=== PATIENT | female | born 1985 | race Caucasian/White ===

== ENCOUNTER 2017-07-09 12:12 | Emergency (ER) | payer OTHER ==
--- NOTE | 2017-07-09 14:20 | UC ---
Respiratory Complaint HPI - HPI Summary HPI Summary: 31 y/o female presents to the urgent care c/o dry cough, sore throat and nasal congestion with sinus pain for the past 3 weeks. Pt reports her children had similar symptoms which resolves last week. However hers still, now naasal congestion is worse with green discharge, sinus pain and cough is worse at night time. She is LMP: 04/2017, She can't recall exactly the date. Pt states her HR is usually elevated above 100. Pt denies fever, SOB, chest pain, dizziness, abdominal pain, N/V/D. She still hasn't have the flu vaccines. - History of Current Complaint Chief Complaint: UCRespiratory Stated Complaint: CONGESTED, SORE THROAT Time Seen by Provider: 07/09/17 14:18 Hx Obtained From: Patient Hx Last Menstrual Period: 03/2017 Onset/Duration: Gradual Onset, Lasting Weeks - 3 weeks, Still Present, Worse Since - last week Severity Initially: Mild Severity Currently: Moderate Pain Intensity: 5 Pain Scale Used: 0-10 Numeric Character: Cough: Nonproductive Aggravating Factors: Deep Breaths Alleviating Factors: Nothing Associated Signs And Symptoms: Positive: Chills, Nasal Congestion, Sinus Discomfort. Negative: Calf Pain, Calf Swelling - Risk Factors Pulmonary Embolism Risk Factors: Negative Cardiac Risk Factors: Negative Pseudomonas Risk Factors: Negative Tuberculosis Risk Factors: Negative - Allergies/Home Medications Allergies/Adverse Reactions: Allergies Allergy/AdvReac Type Severity Reaction Status Date / Time Sulfa Drugs Allergy Severe Unknown Verified 07/09/17 12:39 Reaction Details aspirin/ibuprofen AdvReac See Comment Uncoded 07/09/17 12:39 PMH/Surg Hx/FS Hx/Imm Hx Previously Healthy: Yes Other GI/ History: Ulcerative colitisw, crohns - Surgical History Surgical History: None - Family History Known Family History: Positive: Hypertension, Diabetes Family History: crohns disease - Social History Occupation: Unemployed Lives: With Family Alcohol Use: None Substance Use Type: None Smoking Status (MU): Never Smoked Tobacco - Immunization History Most Recent Influenza Vaccination: 05/09/16 Most Recent Tetanus Shot: 2010 Most Recent Pneumonia Vaccination: unsure Review of Systems Constitutional: Negative Skin: Negative Eyes: Negative ENT: Sore Throat, Nasal Discharge, Sinus Congestion, Sinus Pain/Tenderness Respiratory: Cough - dry Cardiovascular: Negative Gastrointestinal: Negative Genitourinary: Negative Motor: Negative Neurovascular: Negative Musculoskeletal: Negative Neurological: Negative Psychological: Negative Is Patient Immunocompromised?: No All Other Systems Reviewed And Are Negative: Yes Physical Exam Triage Information Reviewed: Yes Vital Signs: Initial Vital Signs Temp 98.6 F 07/09/17 12:36 Pulse 110 07/09/17 12:36 Resp 18 07/09/17 12:36 BP 123/68 07/09/17 12:36 Pulse Ox 100 07/09/17 12:36 - Additional Comments Vitals: reviewed General: Well developed, well-nourished female patient with NAD. Head and face: Normocephalic and atraumatic, Positive tenderness over the frontal and maxillary sinuses.. Eyes: PERRLA, EOMI x 2. Normal conjunctiva. No eye discharge. ENT: Ears and TM with normal limits. Nose: with yellowish discharge and erythematous mucosa. Pharynx with erythema, no exudate. Neck: Supple, no JVD, no carotid bruits and no lymphadenopathy. Lungs: clear, no rales, no rhonchi, no wheezes. CVS: RRR, S1 and S2 present no murmurs or gallops appreciated. Abdomen: soft nontender with positive bowel sounds. Extremities: no edema noted. Neuro: WNL. Skin: warm and dry UC Diagnostic Evaluation - Laboratory O2 Sat by Pulse Oximetry: 100 Respiratory Course/Dx - Differential Dx/Diagnosis Differential Diagnosis/HQI/PQRI: Asthma, Bronchitis, Influenza, Laryngitis, Lower Resp Infection, Sinusitis Provider Diagnoses: 1- acute bacterial sinustis. 2- Cough Discharge - Discharge Plan Condition: Stable Disposition: HOME Prescriptions: Albuterol HFA INHALER* [Ventolin HFA Inhaler*] 1 puff INH Q6H PRN #1 mdi PRN Reason: Cough Amoxicillin PO (*) [Amoxicillin 875 MG (*)] 875 mg PO BID #14 tab Patient Education Materials: Sinusitis (ED) Referrals: Chelo Adrian MD [Primary Care Provider] - 3 Days Additional Instructions: 1- Please increase fluid intake and rest. start taking the antibiotic if symptoms are worsening 2-Use saline drops or saline spray as directed to clear sinuses 3-Please f/u with your OBGYN for further management
[2017-07-09 15:01] VITALS: BP 131/85
== END 2017-07-09 15:06 | disposition home or self-care (01) ==
LOC: UCEAST 12:12
DX: J01.90 Acute sinusitis, unspecified (principal); B96.89 Other specified bacterial agents as the cause of diseases classified elsewhere; R05 Cough; Z88.2 Allergy status to sulfonamides
CPT/HCPCS: 87502; 87651; 99212; G0463

== ENCOUNTER 2018-01-07 16:45 | Emergency (ER) | payer OTHER ==
--- NOTE | 2018-01-07 16:54 | UC ---
Throat Pain/Nasal Jamal HPI - HPI Summary HPI Summary: 32 yo female presents with sinus pain/pressure/congestion for the last week. She feels her symptoms are worsening. Has not taken anything OTC because she is breast feeding and currently 9 months . She is also asking for a refill of Zofran ODT that was rx'd by her OBGYN a few months ago - she has used this sparingly and has run out in the last week, but would like more. She tried calling her OBGYN for this, but they did not get back to her today and have since closed for the day. Denies fever, chills, sore throat, cough, SOB, chest pain, abdominal pain, vomiting, vaginal bleeding. - History of Current Complaint Stated Complaint: SINUS COMPLAINT Time Seen by Provider: 01/07/18 16:53 Hx Obtained From: Patient Hx Last Menstrual Period: 03/2017 Onset/Duration: Gradual Onset Severity: Moderate Pain Intensity: 6 Pain Scale Used: 0-10 Numeric - Allergies/Home Medications Allergies/Adverse Reactions: Allergies Allergy/AdvReac Type Severity Reaction Status Date / Time Sulfa (Sulfonamide Allergy See Comment Verified 01/07/18 16:55 Antibiotics) aspirin/ibuprofen AdvReac See Comment Uncoded 07/09/17 12:39 PMH/Surg Hx/FS Hx/Imm Hx - Additional Past Medical History Additional PMH: None Previously Healthy: Yes - Surgical History Surgical History: None - Family History Known Family History: Positive: Hypertension, Diabetes Family History: crohns disease - Social History Occupation: Employed Full-time Lives: With Family Alcohol Use: None Substance Use Type: None Smoking Status (MU): Never Smoked Tobacco - Immunization History Most Recent Influenza Vaccination: 05/09/16 Most Recent Tetanus Shot: 2010 Most Recent Pneumonia Vaccination: unsure Review of Systems Constitutional: Negative Skin: Negative Eyes: Negative ENT: Nasal Discharge, Sinus Congestion, Sinus Pain/Tenderness Respiratory: Negative Cardiovascular: Negative Gastrointestinal: Nausea Genitourinary: Negative Neurovascular: Negative Neurological: Negative Psychological: Negative All Other Systems Reviewed And Are Negative: Yes Physical Exam - Summary Physical Exam Summary: GENERAL: NAD. WDWN. No pain distress. SKIN: No rashes, sores, lesions, or open wounds. HEENT: Head: AT/NC Eyes: EOM intact. Conjunctiva clear without inflammation or discharge. Ears: Hearing grossly normal. TMs intact, no bulging, erythema, or edema. Nose: Nasal mucosa moderately swollen and erythematous with yellow thick discharge. TTP maxillary and frontal sinus. Throat: Posterior oropharynx without exudates, erythema, or tonsillar enlargement. Uvula midline. NECK: Supple. Nontender. No lymphadenopathy. CHEST: CTAB. No r/r/w. No accessory muscle use. Breathing comfortably and in no distress. CV: RRR. Without m/r/g. Pulses intact. Brisk cap refill. NEURO: Alert. CN II-XII grossly intact. PSYCH: Age appropriate behavior. Triage Information Reviewed: Yes Vital Signs: Vital Signs: Temp Pulse Resp BP Pulse Ox 98.4 F 102 18 119/75 96 01/07/18 16:54 01/07/18 16:54 01/07/18 16:54 01/07/18 16:54 01/07/18 16:54 Throat Pain/Nasal Course/Dx - Course Course Of Treatment: Sinusitis. Regarding her zofran - verified with Karey that she was on Zofran 4mg ODT q6hrs. Will rx a short supply for her and have her f/u with her OBGYN. - Differential Dx/Diagnosis Provider Diagnoses: Sinusitis Discharge - Sign-Out/Discharge Documenting (check all that apply): Discharge/Admit/Transfer - Discharge Plan Condition: Stable Disposition: HOME Prescriptions: Amoxicillin PO (*) [Amoxicillin 500 MG CAP*] 500 mg PO BID #20 cap Ondansetron ODT TAB* [Zofran 4 MG Odt TAB*] 4 mg PO Q8H PRN #12 tab.odt MDD 3 PRN Reason: Nausea Patient Education Materials: Sinusitis (ED) Referrals: Chelo Adrian MD [Primary Care Provider] - Additional Instructions: If you develop a fever, shortness of breath, chest pain, new or worsening symptoms - please call your PCP or go to the ED. - Billing Disposition and Condition Condition: STABLE Disposition: Home
[2018-01-07 17:01] VITALS: BP 119/75
== END 2018-01-07 17:25 | disposition home or self-care (01) ==
LOC: UCEAST 16:45
DX: O26.893 Other specified pregnancy related conditions, third trimester (principal); Z3A.00 Weeks of gestation of pregnancy not specified; J32.9 Chronic sinusitis, unspecified; Z88.2 Allergy status to sulfonamides; Z88.6 Allergy status to analgesic agent
CPT/HCPCS: 99202; G0463

== ENCOUNTER 2018-02-03 00:11 | Emergency (ER) | payer OTHER ==
[2018-02-03 00:32] VITALS: BP 111/70
[2018-02-03] MEDS ORDERED: NS 0.9% 1000 ML* 1,000 ML IV ONE (00:41)
[2018-02-03 01:01] LABS: ABS Basophils 0 10^3/ul (0-0.2); ABS Eosinophils 0.2 10^3/ul (0-0.6); ABS Lymphocytes 1.5 10^3/ul (1.0-4.8); ABS Monocytes 0.6 10^3/ul (0-0.8); ABS Neutrophils 6.7 10^3/ul (1.5-7.7); ABS Nucleated RBC 0 10^3/ul; Hematocrit 34 % (35-47); Hemoglobin 11.2 g/dl (12.0-16.0); Lymphocyte % 17.1 % (25-47); Mean Corpuscular HGB Conc 33 g/dl (31-36); Mean Corpuscular Hemoglobin 26 pg (27-31); Mean Corpuscular Volume 80 fL (80-97); Mean Platelet Volume 8.4 um3 (7.4-10.4); Nucleated Red Blood Cells % 0.2; Platelet Count 193 10^3/ul (150-450); Red Blood Count 4.26 10^6/ul (4.00-5.40); Red Cell Distribution Width 15 % (10.5-15)
[2018-02-03 01:11] LABS: EGFR Non-African American 96.7 (>60)
[2018-02-03 01:14] LABS: INR 0.86 (0.77-1.02)
--- NOTE | 2018-02-03 01:16 | ED ---
Ricco Newell Rebecca, scribed for Akbar Shore on 02/03/18 at 0038 . - HPI Summary HPI Summary: Pt is a 32 y/o F BIBA who presents to ED s/p full term vaginal delivery at home. The baby was born about 20 minutes [employer] (2341), without EMS on scene. Per nurse's note, the umbilical cord was wrapped around the 's neck after , which was removed by the mother. Upon EMS arrival, the baby's score was 4. After suction and stimulation, the score went up to 7, per EMS. This was her third and upon arrival, the placenta has not yet been expelled. Her last BP was 118/97 and pulse was 108 bpm per EMS. On triage, pt reports associated abdominal pain to be severe, ranked 8/10. - History of Current Complaint Stated Complaint: OB PROBLEM Hx Obtained From: Patient, EMS, Medical Records Chief Complaint: Pain, Other: - S/p vaginal Onset/Duration: Still Present Current Severity: Severe Pain Intensity: 8 Character: Other: - Acute, per triage Aggravating Factors: Nothing Alleviating Factors: Nothing - Assessment Hx Now: Yes SAB: 0 IEA: 0 Hx Hysterectomy: No - Additional Pertinent History Maternal Blood Type and Rh: A Positive - Allergies/Home Medications Allergies/Adverse Reactions: Allergies Allergy/AdvReac Type Severity Reaction Status Date / Time Sulfa (Sulfonamide Allergy See Comment Verified 01/07/18 16:55 Antibiotics) aspirin/ibuprofen AdvReac See Comment Uncoded 07/09/17 12:39 PMH/Surg Hx/FS Hx/Imm Hx Endocrine/Hematology History: Denies: Hx Diabetes, Hx Thyroid Disease Cardiovascular History: Denies: Hx Hypertension Respiratory History: Denies: Hx Asthma, Hx Chronic Obstructive Pulmonary Disease (COPD) GI History: Reports: Hx Crohn's Disease Denies: Hx Ulcer Comment Only: Other GI Disorders - colitis History: Reports: Other Problems/Disorders - crohn's disease Psychiatric History: Reports: Hx Anxiety, Hx Depression, Hx Substance Abuse - hx of occasional THC use. Infectious Disease History: Unable to Obtain/Confirm Infectious Disease History: Denies: Hx Hepatitis, Hx Human Immunodeficiency Virus (HIV), Traveled Outside the [place] in Last 30 Days Comment Only: History Other Infectious Disease - hx of syphyllis - Family History Known Family History: Positive: Hypertension, Diabetes Family History: crohns disease - Social History Alcohol Use: None Substance Use Type: Reports: None Smoking Status (MU): Never Smoked Tobacco Review of Systems Positive: Other - S/p vaginal at home Positive: Abdominal Pain All Other Systems Reviewed And Are Negative: Yes Physical Exam - Summary Physical Exam Summary: Appearance: Well appearing, no pain distress Skin: warm, dry, reflects adequate perfusion Head/face: normal Eyes: EOMI, FER ENT: normal Neck: supple, non-tender Respiratory: CTA, breath sounds present Cardiovascular: RRR, pulses symmetrical Abdomen: diffuse tenderness, placent/ cord pelvic area with no active bleeding Bowel: present Musculoskeletal: normal, strength/ROM intact Neuro: normal, sensory motor intact, A&Ox3 - Physical Exam Triage Information Reviewed: Yes Vital Signs On Initial Exam: Initial Vitals Temp Pulse Resp BP Pulse Ox 99.9 F 100 24 111/70 96 02/03/18 00:11 02/03/18 00:11 02/03/18 00:11 02/03/18 00:11 02/03/18 00:11 Vital Signs Reviewed: Yes Diagnostics - Vital Signs Vital Signs Temp Pulse Resp BP Pulse Ox 02/03/18 00:11 99.9 F 100 24 111/70 96 - Laboratory Lab Results: Lab Results 02/03/18 02/03/18 02/03/18 Range/Units 00:20 00:20 00:20 WBC 9.0 (3.5-10.8) 10^3/ul RBC 4.26 (4.00-5.40) 10^6/ul Hgb 11.2 L (12.0-16.0) g/dl Hct 34 L (35-47) % MCV 80 (80-97) fL MCH 26 L (27-31) pg MCHC 33 (31-36) g/dl RDW 15 (10.5-15) % Plt Count 193 (150-450) 10^3/ul MPV 8.4 (7.4-10.4) um3 Neut % (Auto) 73.8 (38-83) % Lymph % (Auto) 17.1 L (25-47) % [place] % (Auto) 7.0 (0-7) % Eos % (Auto) 2.0 (0-6) % Baso % (Auto) 0.1 (0-2) % Absolute Neuts (auto) 6.7 (1.5-7.7) 10^3/ul Absolute Lymphs (auto) 1.5 (1.0-4.8) 10^3/ul Absolute Monos (auto) 0.6 (0-0.8) 10^3/ul Absolute Eos (auto) 0.2 (0-0.6) 10^3/ul Absolute Basos (auto) 0 (0-0.2) 10^3/ul Absolute Nucleated RBC 0 10^3/ul Nucleated RBC % 0.2 Sodium 136 (135-145) mmol/L Potassium 3.7 (3.5-5.0) mmol/L Chloride 105 (101-111) mmol/L Carbon Dioxide 22 (22-32) mmol/L Anion Gap 9 (2-11) mmol/L BUN 12 (6-24) mg/dL Creatinine 0.71 (0.51-0.95) mg/dL Est GFR ( Amer) 117.0 (>60) Est GFR (Non-Af Amer) 96.7 (>60) BUN/Creatinine Ratio 16.9 (8-20) Glucose 99 (70-100) mg/dL Calcium 9.0 (8.6-10.3) mg/dL Total Bilirubin 0.20 (0.2-1.0) mg/dL AST 17 (13-39) U/L ALT 15 (7-52) U/L Alkaline Phosphatase 123 H (34-104) U/L Total Protein 6.5 (6.4-8.9) g/dL Albumin 3.1 L (3.2-5.2) g/dL Globulin 3.4 (2-4) g/dL Albumin/Globulin Ratio 0.9 L (1-3) Blood Type A Positive Antibody Screen Pending Result Diagrams: 02/03/18 00:20 02/03/18 00:20 Lab Statement: Any lab studies that have been ordered have been reviewed, and results considered in the medical decision making process. Course/Dx - Course Assessment/Plan: Pt is a 32 y/o F BIBA who presents to ED s/p full term vaginal delivery at home. The baby was born 20 minutes [employer], without EMS on scene and upon their arrival, the score was 4. After suction and stimulation, the score went up to 7, per EMS. This was her third . Her last BP was 118 /97 and pulse was 108 bpm per EMS. On triage, pt reports associated abdominal pain to be severe, ranked 8/10. Dr. Gordon ([employer]) and the rehabilitation services director accepted pt for admission to [facility]. Allergies noted. - Differential Diagnosis/HQI/PQRI: Vaginal Bleeding, Other: - spntaneuous delivery - Diagnoses Provider Diagnoses: Abdominal pain, Retained products of conception, Vaginal bleeding, Status post delivery at term Discharge - Sign-Out/Discharge Documenting (check all that apply): Discharge/Admit/Transfer - Admit - Discharge Plan Condition: Guarded Disposition: TRANSFER TO OB ([facility]) Referrals: Chelo Adrian MD [Primary Care Provider] - - Billing Disposition and Condition Condition: GUARDED Disposition: Transfer to OB ([facility]) The documentation as recorded by the Ricco geiger Rebecca accurately reflects the service I personally performed and the decisions made by Silviano rm Emmanuel.
== END 2018-02-03 00:58 | disposition other institution (70) ==
LOC: ED 00:11
DX: R10.9 Unspecified abdominal pain (principal); N93.9 Abnormal uterine and vaginal bleeding, unspecified; Z39.0 Encounter for care and examination of mother immediately after delivery
CPT/HCPCS: 36415; 80053; 85025; 85610; 85730; 86850; 86900; 86901; 99284

== ENCOUNTER 2018-02-03 00:25 | Inpatient (IN) | payer OTHER ==
[2018-02-03] MEDS ORDERED: Oxytocin in LR* 20 UNITS/1,000 ML BAG IVPB ONE (00:32)
[2018-02-03] MEDS ORDERED: fentaNYL* 50 MCG/ML 2 ML VIAL (100 MCG VIAL) ONE (00:32)
[2018-02-03] MEDS ORDERED: Dibucaine 1% 28.35 GM TUBE PR PRN (00:53)
[2018-02-03] MEDS ORDERED: Acetaminophen TAB* 325 MG PO PRN (00:53)
[2018-02-03] MEDS ORDERED: Glycerin ADULT SUPP PR PRN (00:53)
[2018-02-03] MEDS ORDERED: Witch Hazel PAD* JAR TOPICAL PRN (00:53)
[2018-02-03] MEDS ORDERED: Misoprostol TAB* 200 MCG PR ONE (00:55)
[2018-02-03] MEDS ORDERED: Oxytocin in LR* 20 UNITS/1,000 ML BAG IVPB SCH (01:00)
--- NOTE | 2018-02-03 01:01 | HP ---
General Information - General Information Maternal Age: 31 Grav: 2 Para: 1 SAB: 0 IEA: 0 Estimated Due Date: 12/11/16 Determined By: Early Ultrasound Gestational Age in Weeks and Days: 39 Weeks and 6 Days Maternal Blood Type and Rh: A Positive - Results this Serology/RPR Result: Reactive Rubella Result: Immune HBsAg Result: Negative HIV Result: Negative GBS Culture Result: Positive Past Medical History Delivery History: Hx Uncomplicated Vaginal Delivery, See Records Pertinent Past Medical History: See Records Past Medical History Comment: Colitis Crohn's disease Depression/Anxiety Migraines PTSD Hx HSV 2, Chlamydia, Syphilis Pertinent Past Surgical History: See Records Pertinent Family History: See Records - Antepartal Records Antepartal Records: Reviewed, Complicated by: - Psychosocial issues, depression/anxiety, Hx Syphilis Review of Systems Constitutional: Uncomfortable CV Complaint: No Respiratory: Shortness of Breath: No Gastrointestinal: No Nausea/Vomiting, Normal Bowel Movement Genitourinary: Bleeding, No Dysuria Musculoskeletal: No Complaint Neurological: No Headache - Comments Patient brought to Labor/delivery from the emergency room after giving at home of viable full term infant. Exam Allergies/Adverse Reactions: Allergies Sulfa (Sulfonamide Antibiotics) Allergy (Verified 01/07/18 16:55) See Comment Patient states caused inability to talk aspirin/ibuprofen Adverse Reaction (Uncoded 07/09/17 12:39) See Comment doesn't take d/t chrohn's disease as it's "hard on the bowels" Temp 98.5 BP 112/62 HR 90-100's POx 100% RA - Measurements Height: 5 ft 6 in Weight: 178 lb Body Mass Index (BMI): 28.7 Pre- Weight: 165 lb - Exam Abdomen: No Upper Quadrant Pain Breast: Breast Exam Deferred CVA: No CVA Tenderness Extremities: No Edema Heart: Normal Rhythm/Heart Sounds HEENT: No Significant Findings Lungs: Clear Bilaterally Rectal: Rectal Exam Deferred Reflexes: DTR 2+ Thyroid: No Thyromegaly - Abdominal Exam Abdomen Exam: Non-Tender - Ultrasound/Biophysical Profile Ultrasound Status: Not Done Targeted Exam Findings See L&D Outpatient Visit Provider Note for Findings: N/A - Patient delivered except for placenta. Assessment/Plan - Reason for Visit Reason for Visit: Patient ias a 32 y/o post at home at for delivery of placenta. - Plan Plan Comment: Placenta delivered spontaneously EBL 600cc
--- NOTE | 2018-02-03 01:20 | PROCNOTE ---
[facility] OB: Delivery Note - Nursery Level of Nursery: NICU - Perineum Perineal Injury: None/Intact Perineal Repair: None - Patient delivered at home - Events Delivery Events of Note: Post- Bleeding - Meds Given Delivery Events of Note Comment: Placenta delivered spontaneously, followed by uterine atony treated with cytotec 800mcg and IV pitocin, Bimanual uterine massage and removal of clots. EBL 600cc. - Risk for Falls Delivered OB Patient- Risk for Falls: Heavy Bleeding Fall Risk: Patient is at High Risk for Falls
[2018-02-03] MEDS: Ibuprofen TAB* 600 MG PO PRN ×3 (08:24→22:18)
[2018-02-03] MEDS ORDERED: Simethicone TAB* 80 MG TAB.CHEW PO SCH (08:30)
[2018-02-03] MEDS ORDERED: Calcium Carbonate CHEW TAB* 500 MG (TUMS) ONE (11:53)
[2018-02-03] MEDS: Docusate CAP* 100 MG PO SCH (11:56)
[2018-02-03] MEDS: Calcium Carbonate CHEW TAB* 500 MG (TUMS) PO SCH (11:56)
[2018-02-04 06:34] LABS: ABS Basophils 0.1 10^3/ul (0-0.2); ABS Eosinophils 0.2 10^3/ul (0-0.6); ABS Lymphocytes 1.8 10^3/ul (1.0-4.8); ABS Monocytes 0.6 10^3/ul (0-0.8); ABS Neutrophils 5.6 10^3/ul (1.5-7.7); ABS Nucleated RBC 0 10^3/ul; Eosinophil % 2.7 % (0-6); Hematocrit 29 % (35-47); Hemoglobin 9.7 g/dl (12.0-16.0); Lymphocyte % 21.3 % (25-47); Mean Corpuscular HGB Conc 33 g/dl (31-36); Mean Corpuscular Hemoglobin 27 pg (27-31); Mean Corpuscular Volume 80 fL (80-97); Mean Platelet Volume 8.1 um3 (7.4-10.4); Nucleated Red Blood Cells % 0; Platelet Count 184 10^3/ul (150-450); Red Blood Count 3.63 10^6/ul (4.00-5.40); Red Cell Distribution Width 14 % (10.5-15); White Blood Count 8.2 10^3/ul (3.5-10.8)
[2018-02-04] MEDS: Calcium Carbonate CHEW TAB* 500 MG (TUMS) PO SCH ×2 (08:15→09:13)
[2018-02-04] MEDS: Docusate CAP* 100 MG PO SCH ×3 (08:15→15:45)
[2018-02-04] MEDS: Ibuprofen TAB* 600 MG PO PRN ×2 (08:37→15:45)
[2018-02-04] MEDS ORDERED: Ferrous Gluconate TAB* 324 MG TAB PO SCH (09:00)
[2018-02-04 09:10] VITALS: BP 125/78
== END 2018-02-04 18:24 | disposition home or self-care (01) | DRG 560 ==
LOC: MCHOB 00:25
PROVIDERS: ADMIT Obstetrics & Gynecology; ATTEND Obstetrics & Gynecology
PROC: 0UC97ZZ Extirpation of Matter from Uterus, Via Natural or Artificial Opening (ICD-10-PCS; principal; 2018-02-03)
PROC: 10E0XZZ Delivery of Products of Conception, External Approach (ICD-10-PCS; 2018-02-03)
DX: O72.1 Other immediate postpartum hemorrhage (principal); Z88.8 Allergy status to other drugs, medicaments and biological substances; Z88.2 Allergy status to sulfonamides
CPT/HCPCS: 36415; 80307; 85025; 86592; 86803; 99284; A9270-GY; J3010

== ENCOUNTER 2018-04-29 16:18 | Emergency (ER) | payer OTHER ==
[2018-04-29 16:51] VITALS: BP 119/69
--- NOTE | 2018-04-29 17:18 | UC ---
Throat Pain/Nasal Jamal HPI - HPI Summary HPI Summary: 32 yo female presents with sinus pain/pressure/congestion for the last 2 weeks. She has not been taking anything OTC because she thinks there is a chance she is . She gave 10 weeks ago and had a period 6 weeks ago, but has not had one since. She has had unprotected intercourse since that time. She took a home test, which was negative. She has an appointment in a couple of days with her PCP for bloodwork. Denies fever, chills, SOB, chest pain , abdominal pain, n/v, vaginal bleeding or discharge. - History of Current Complaint Chief Complaint: UCGeneralIllness Stated Complaint: SINUS CONGESTION Time Seen by Provider: 04/29/18 17:17 Hx Obtained From: Patient Hx Last Menstrual Period: [id number] Onset/Duration: Gradual Onset Pain Intensity: 0 - Allergies/Home Medications Allergies/Adverse Reactions: Allergies Allergy/AdvReac Type Severity Reaction Status Date / Time Sulfa (Sulfonamide Allergy See Comment Verified 04/29/18 16:51 Antibiotics) PMH/Surg Hx/FS Hx/Imm Hx - Additional Past Medical History Additional PMH: None - Surgical History Surgical History: None - Family History Known Family History: Positive: Hypertension, Diabetes Family History: crohns disease - Social History Alcohol Use: Rare Substance Use Type: None Smoking Status (MU): Never Smoked Tobacco Have You Smoked in the Last Year: No - Immunization History Most Recent Influenza Vaccination: 05/09/16 Most Recent Tetanus Shot: 2010 Most Recent Pneumonia Vaccination: unsure Review of Systems Constitutional: Negative Skin: Negative Eyes: Negative ENT: Nasal Discharge, Sinus Congestion, Sinus Pain/Tenderness Respiratory: Negative Cardiovascular: Negative Gastrointestinal: Negative Neurovascular: Negative Neurological: Negative Psychological: Negative All Other Systems Reviewed And Are Negative: Yes Physical Exam - Summary Physical Exam Summary: GENERAL: NAD. WDWN. No pain distress. SKIN: No rashes, sores, lesions, or open wounds. HEENT: Head: AT/NC Eyes: EOM intact. Conjunctiva clear without inflammation or discharge. Ears: Hearing grossly normal. TMs intact, no bulging, erythema, or edema. Nose: Nasal mucosa mildly swollen and erythematous with clear discharge. TTP maxillary and frontal sinus. Throat: Posterior oropharynx without exudates, erythema, or tonsillar enlargement. Uvula midline. NECK: Supple. Nontender. No lymphadenopathy. CHEST: CTAB. No r/r/w. No accessory muscle use. Breathing comfortably and in no distress. CV: RRR. Without m/r/g. Pulses intact. NEURO: Alert. PSYCH: Age appropriate behavior. Triage Information Reviewed: Yes Vital Signs: Initial Vital Signs Temp 98.4 F 04/29/18 16:45 Pulse 82 04/29/18 16:45 Resp 18 04/29/18 16:45 BP 119/69 04/29/18 16:45 Pulse Ox 100 04/29/18 16:45 Laboratory Tests 04/29/18 17:42 POC Ur Test Negative Vital Signs Reviewed: Yes Throat Pain/Nasal Course/Dx - Course Course Of Treatment: Sinusitis. Urine negative today. Advised to keep appointment with PCP for further eval. - Differential Dx/Diagnosis Provider Diagnoses: Sinusitis Discharge - Sign-Out/Discharge Documenting (check all that apply): Patient Departure All imaging exams completed and their final reports reviewed: No Studies - Discharge Plan Condition: Stable Disposition: HOME Prescriptions: Amoxicillin PO (*) [Amoxicillin 500 MG CAP*] 500 mg PO Q12H #20 cap Patient Education Materials: Sinusitis (ED) Referrals: Chelo Adrian MD [Primary Care Provider] - Additional Instructions: If you develop a fever, shortness of breath, chest pain, new or worsening symptoms - please call your PCP or go to the ED. - Billing Disposition and Condition Condition: STABLE Disposition: Home - Attestation Statements Provider Attestation: I was available for consult. This patient was seen by the DANIEL. The patient was not presented to, seen by, or examined by me. -Rossana
== END 2018-04-29 18:10 | disposition home or self-care (01) ==
LOC: UCEAST 16:18
DX: J32.9 Chronic sinusitis, unspecified (principal); Z32.02 Encounter for pregnancy test, result negative; Z88.2 Allergy status to sulfonamides
CPT/HCPCS: 84702; 99212; G0463

== ENCOUNTER 2018-11-06 08:31 | Emergency (ER) | payer OTHER ==
[2018-11-06 09:34] VITALS: BP 118/81
--- NOTE | 2018-11-06 09:48 | ED ---
Throat Pain/Nasal Congestion - HPI Summary HPI Summary: Patient is a 32-year-old female presenting to the ED with 2 separate complaints. She endorses pain to the left upper tooth #13 with pain 2-3 days and has a paronychia on to the right thumb for approximately 1 week. She has not been taking antibiotics. She has never had this before. She has been unable to see a dentist and called [facility] today and was unable to get an. She has been taking Tylenol as she is breast-feeding currently. Denies any fevers, sweats, chills. Denies any dysphagia or odynophagia. Denies any drainage from the paronychia. - History of Current Complaint Chief Complaint: EDDentalPain Time Seen by Provider: 11/06/18 08:40 Hx Obtained From: Patient Onset/Duration: Sudden Onset Severity: Moderate Associated Signs And Symptoms: Negative: Dysphagia, Drooling, Wheezing - Epiglottits Risk Factors Epiglottis Risk Factors: Negative - Allergies/Home Medications Allergies/Adverse Reactions: Allergies Allergy/AdvReac Type Severity Reaction Status Date / Time Sulfa (Sulfonamide Allergy See Comment Verified 11/06/18 08:47 Antibiotics) Home Medications: Home Medications Balsalazide Sodium CAP(NF) [Colazal CAP(NF)] 3 cap PO TID 11/06/18 [History Confirmed 11/06/18] Ondansetron TAB* [Zofran 4 MG Tab*] 4 mg PO SEE INSTRUCTIONS PRN 11/06/18 [ History Confirmed 11/06/18] predniSONE TAB* [Deltasone 10 MG TAB*] 20 mg PO DAILY 11/06/18 [History Confirmed 11/06/18] PMH/Surg Hx/FS Hx/Imm Hx Previously Healthy: Yes Endocrine/Hematology History: Denies: Hx Diabetes, Hx Thyroid Disease Cardiovascular History: Denies: Hx Hypertension Respiratory History: Denies: Hx Asthma, Hx Chronic Obstructive Pulmonary Disease (COPD) GI History: Reports: Hx Crohn's Disease Denies: Hx Ulcer Comment Only: Other GI Disorders - colitis History: Reports: Other Problems/Disorders - colitis and crohns Psychiatric History: Reports: Hx Anxiety, Hx Depression, Hx Substance Abuse - hx of occasional THC use. - Immunization History Hx Pertussis Vaccination: No Immunizations Up to Date: Yes Infectious Disease History: No Infectious Disease History: Denies: Hx Hepatitis, Hx Human Immunodeficiency Virus (HIV), Traveled Outside the [place] in Last 30 Days Comment Only: History Other Infectious Disease - hx of syphyllis - Family History Known Family History: Positive: Hypertension, Diabetes Family History: crohns disease - Social History Occupation: Unemployed Lives: With Family Alcohol Use: Rare Hx Substance Use: No Substance Use Type: Reports: None Smoking Status (MU): Never Smoked Tobacco Have You Smoked in the Last Year: No Review of Systems Constitutional: Negative Negative: Fever, Chills, Fatigue, Skin Diaphoresis Positive: Dental Pain. Negative: Epistaxis, Sore Throat, Ear Ache Negative: Palpitations, Chest Pain Genitourinary: Negative Positive: no symptoms reported, see HPI Negative: Arthralgia, Myalgia Positive: Other - right thumb paronychia Neurological: Negative All Other Systems Reviewed And Are Negative: Yes Physical Exam Triage Information Reviewed: Yes Vital Signs On Initial Exam: Initial Vitals Temp Pulse Resp BP Pulse Ox 98.8 F 121 17 130/82 100 11/06/18 08:37 11/06/18 08:37 11/06/18 08:37 11/06/18 08:37 11/06/18 08:37 Vital Signs Reviewed: Yes Appearance: Positive: Well-Appearing, Well-Nourished Skin: Positive: Skin Color Reflects Adequate Perfusion, Other - right thumb paronychia Head/Face: Positive: Normal Head/Face Inspection Eyes: Positive: EOMI, Conjunctiva Clear Neck: Positive: Supple, Nontender, No Lymphadenopathy Cardiovascular: Positive: Pulses are Symmetrical in both Upper and Lower Extremities. Negative: Leg Edema Left, Leg Edema Right Musculoskeletal: Positive: Normal, Strength/ROM Intact Neurological: Positive: Speech Normal Psychiatric: Positive: Affect/Mood Appropriate Diagnostics - Vital Signs Vital Signs Temp Pulse Resp BP Pulse Ox 11/06/18 09:32 98.7 F 94 16 118/81 100 11/06/18 08:37 98.8 F 121 17 130/82 100 - Laboratory Lab Statement: Any lab studies that have been ordered have been reviewed, and results considered in the medical decision making process. EENT Course/Dx - Course Course Of Treatment: On physical examination, there is no evidence of erythema to the gums and no obvious signs of abscess. No drainage from the area. No swelling is noted. Paronychias without drainage, mild tenderness just around the nail base with erythema. She is refusing I and D. Patient says she has been otherwise well. She states she has been taking acetaminophen at home without relief. I prescribed her hydrocodone, however I discussed the breast- feeding considerations according to up-to-date and she will not breast feed for 6-8 hours following the medication. She is also given keflex. She understands return precautions and will follow up with dentist. - Diagnoses Provider Diagnoses: Paronychia, Pain, dental Discharge - Sign-Out/Discharge Documenting (check all that apply): Patient Departure Patient Received Moderate/Deep Sedation with Procedure: No - Discharge Plan Condition: Stable Disposition: HOME Prescriptions: Hydrocodone/Acetamin 10/325(NF [[place] 10/325 (NF)] 1 tab PO SEE INSTRUCTIONS PRN #6 tab MDD 1 PRN Reason: Pain Penicillin VK 500 MG TAB(NF) [Penicillin VK 500 mg Tab(NF)] 500 mg PO TID #21 tab MDD 3 Patient Education Materials: Paronychia (ED), Toothache (ED) Referrals: Chelo Adrian MD [Primary Care Provider] - Additional Instructions: Penicillin one tab 3 times daily 7 days Hydrocodone only at bedtime as discussed, do not breast-feed after taking this medication for approximately 6-8 hours as it is present in breast milk You may continue to take Tylenol during the day Please follow-up with dentist right away Soak thumb in warm water - Billing Disposition and Condition Condition: STABLE Disposition: Home
== END 2018-11-06 09:32 | disposition home or self-care (01) ==
LOC: ED 08:31
DX: L03.011 Cellulitis of right finger (principal); K08.89 Other specified disorders of teeth and supporting structures; K50.90 Crohn's disease, unspecified, without complications; F32.9 Major depressive disorder, single episode, unspecified; F41.9 Anxiety disorder, unspecified; Z88.2 Allergy status to sulfonamides
CPT/HCPCS: 99282

== ENCOUNTER → 2019-02-26 14:42 | Emergency (ER) | payer OTHER ==
[2019-02-26 17:07] VITALS: BP 112/54
--- NOTE | 2019-02-27 06:42 | ED ---
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 Bleeding is controlled on arrival. She endorses a laceration and pain to the distal tip of the finger, with no pain to the hand otherwise. Patient continues to be able to flex and extend the hand and fingers without discomfort. 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 - History of Current Complaint Stated Complaint: RT MIDDLE FINGER SHUT IN DOOR PER PT Time Seen by Provider: 02/26/19 15:23 Hx Obtained From: Patient Hx Last Menstrual Period: [id number] Mechanism of Injury: Sharp/Blunt Trauma Onset/Duration: Sudden Onset Aggravating: Movement Alleviating: Compression Timing: Constant Onset Severity: Mild Pain Intensity: 7 Pain Scale Used: 0-10 Numeric Associated Signs & Symptoms: Negative - Allergy/Home Medications Allergies/Adverse Reactions: Allergies Allergy/AdvReac Type Severity Reaction Status Date / Time Sulfa (Sulfonamide Allergy See Comment Verified 02/26/19 14:52 Antibiotics) PMH/Surg Hx/FS Hx/Imm Hx Previously Healthy: Yes Endocrine/Hematology History: Denies: Hx Diabetes, Hx Thyroid Disease Cardiovascular History: Denies: Hx Hypertension Respiratory History: Denies: Hx Asthma, Hx Chronic Obstructive Pulmonary Disease (COPD) GI History: Reports: Hx Crohn's Disease Denies: Hx Ulcer Comment Only: Other GI Disorders - colitis History: Reports: Other Problems/Disorders - colitis and crohns Psychiatric History: Reports: Hx Anxiety, Hx Depression, Hx Substance Abuse - hx of occasional THC use. - Immunization History Hx Pertussis Vaccination: No Immunizations Up to Date: Yes Infectious Disease History: No Infectious Disease History: Denies: Hx Hepatitis, Hx Human Immunodeficiency Virus (HIV), Traveled Outside the US in Last 30 Days Comment Only: History Other Infectious Disease - hx of syphyllis - Family History Known Family History: Positive: Hypertension, Diabetes Family History: crohns disease - Social History Occupation: Unemployed Lives: With Family Alcohol Use: Rare Hx Substance Use: No Substance Use Type: Reports: None Smoking Status (MU): Never Smoked Tobacco Have You Smoked in the Last Year: No Review of Systems Negative: Fever, Chills, Fatigue Negative: Chest Pain Negative: Shortness Of Breath, Cough Negative: Arthralgia, Myalgia Positive: Other - laceration to the radial side of the distal tip of the nail Neurological: Negative All Other Systems Reviewed And Are Negative: Yes Physical Exam Vital Signs On Initial Exam: Initial Vitals Temp Pulse Resp BP Pulse Ox 100.1 F 120 16 118/79 98 02/26/19 14:46 02/26/19 14:46 02/26/19 14:46 02/26/19 14:46 02/26/19 14:46 Diagnostics - Vital Signs Vital Signs Temp Pulse Resp BP Pulse Ox 02/26/19 17:06 98.2 F 112 16 112/54 99 02/26/19 14:46 100.1 F 120 16 118/79 98 - Laboratory Lab Statement: Any lab studies that have been ordered have been reviewed, and results considered in the medical decision making process. Laceration Repair Course/Dx - Course Course Of Treatment: Physical examination, there is a small laceration to the radial side at the distal tip of the finger/nail. No nail involvement. Patient will not allow pt to assess the finger further. Xray obtained which shows no fx. Discussed with patient will need to abx and gauze wrap the area. She continues to not speak with provider. Gauze wrapped by RN. - Clinical Impression Provider Diagnoses: Finger pain, Laceration Discharge - Sign-Out/Discharge Documenting (check all that apply): Patient Departure Patient Received Moderate/Deep Sedation with Procedure: No - Discharge Plan Condition: Stable Disposition: HOME Patient Education Materials: Laceration (ED) Referrals: Chelo Adrian MD [Primary Care Provider] - Additional Instructions: Keep the dressing applied x 3 days Keep an antibiotic ointment applied - Billing Disposition and Condition Condition: STABLE Disposition: Home
== END | disposition home or self-care (01) ==
LOC: ED 14:42
DX: S61.312A Laceration without foreign body of right middle finger with damage to nail, initial encounter (principal); W23.0XXA Caught, crushed, jammed, or pinched between moving objects, initial encounter; Y92.009 Unspecified place in unspecified non-institutional (private) residence as the place of occurrence of the external cause; K50.90 Crohn's disease, unspecified, without complications; Z88.2 Allergy status to sulfonamides
CPT/HCPCS: 73140; 99282

== ENCOUNTER 2019-04-14 12:18 | Emergency (ER) | payer OTHER ==
[2019-04-14 12:28] VITALS: BP 139/108
--- NOTE | 2019-04-14 12:55 | ED ---
Throat Pain/Nasal Congestion - HPI Summary HPI Summary: This patient is a 33 year old female presenting to [facility] with a chief complaint of dental pain. She reports pain in the upper jaw. She states she thinks she thinks may have an abscess. She took Tylenol x2 4 hours ago. Pt denies any fever, chills, erythema of eyes, sore throat, CP, SOB, cough, abdominal pain, N/ V, dysuria, hematuria, myalgia, edema, rash, or dizziness. She is requesting antibiotics. - History of Current Complaint Chief Complaint: EDDentalPain Time Seen by Provider: 04/14/19 12:45 Hx Obtained From: Patient Onset/Duration: Lasting Days - Allergies/Home Medications Allergies/Adverse Reactions: Allergies Allergy/AdvReac Type Severity Reaction Status Date / Time Sulfa (Sulfonamide Allergy See Comment Verified 02/26/19 14:52 Antibiotics) PMH/Surg Hx/FS Hx/Imm Hx Endocrine/Hematology History: Denies: Hx Diabetes, Hx Thyroid Disease Cardiovascular History: Denies: Hx Hypertension Respiratory History: Denies: Hx Asthma, Hx Chronic Obstructive Pulmonary Disease (COPD) GI History: Reports: Hx Crohn's Disease Denies: Hx Ulcer Comment Only: Other GI Disorders - colitis History: Reports: Other Problems/Disorders - colitis and crohns Psychiatric History: Reports: Hx Anxiety, Hx Depression, Hx Substance Abuse - hx of occasional THC use. Infectious Disease History: No Infectious Disease History: Denies: Hx Hepatitis, Hx Human Immunodeficiency Virus (HIV), Traveled Outside the US in Last 30 Days Comment Only: History Other Infectious Disease - hx of syphyllis - Family History Known Family History: Positive: Hypertension, Diabetes Family History: crohns disease - Social History Alcohol Use: Rare Hx Substance Use: No Substance Use Type: Reports: None Smoking Status (MU): Never Smoked Tobacco Have You Smoked in the Last Year: No Review of Systems Negative: Fever, Chills Negative: Erythema Positive: Dental Pain. Negative: Sore Throat Negative: Chest Pain Negative: Shortness Of Breath, Cough Negative: Abdominal Pain, Vomiting, Nausea Negative: dysuria, hematuria Negative: Myalgia, Edema Negative: Rash Neurological: Other - Neg: Dizziness All Other Systems Reviewed And Are Negative: No Physical Exam - Summary Physical Exam Summary: Constitutional: Well-developed, Well-nourished, Alert. (-) Distressed Skin: Warm, Dry HENT: Normocephalic; Atraumatic. No sublingual erythema. No drainable abscess. Eyes: Conjunctiva normal Neck: Musculoskeletal ROM normal neck. (-) JVD, (-) Stridor, (-) Tracheal deviation Cardio: Rhythm regular, rate normal, Heart sounds normal; Intact distal pulses; The pedal pulses are 2+ and symmetric. Radial pulses are 2+ and symmetric. (-) Murmur Pulmonary/Chest wall: Effort normal. (-) Respiratory distress, (-) Wheezes, (-) Rales Abd: Soft, (-) tenderness, (-) Distension, (-) Guarding, (-) Rebound Musculoskeletal: (-) Edema Lymph: (-) Cervical adenopathy Neuro: Alert, Oriented x3 Psych: Mood and affect Normal Triage Information Reviewed: Yes Vital Signs On Initial Exam: Initial Vitals Temp Pulse Resp BP Pulse Ox 98.4 F 90 18 139/108 98 04/14/19 12:19 04/14/19 12:19 04/14/19 12:19 04/14/19 12:19 04/14/19 12:19 Vital Signs Reviewed: Yes Diagnostics - Vital Signs Vital Signs Temp Pulse Resp BP Pulse Ox 04/14/19 12:19 98.4 F 90 18 139/108 98 - Laboratory Lab Statement: Any lab studies that have been ordered have been reviewed, and results considered in the medical decision making process. EENT Course/Dx - Course Course Of Treatment: This patient is a 33 year old female presenting to [facility] with a chief complaint of dental pain. The physical exam was unremarkable. The patient was prescribed medication and instructed on how to manage this with her breast feeding. A plan for discharge was discussed with the patient and she was agreeable with this plan. - Diagnoses Provider Diagnoses: Pain, dental Discharge ED - Sign-Out/Discharge Documenting (check all that apply): Patient Departure - Discharge Patient Received Moderate/Deep Sedation with Procedure: No - Discharge Plan Condition: Stable Disposition: HOME Prescriptions: Hydrocodone/Acetamin 10/325(NF [[place] 10/325 (NF)] 1 tab PO BEDTIME PRN #5 tab MDD 1 PRN Reason: Pain - Severe Ibuprofen TAB* [Motrin TAB* 600 MG] 400 mg PO Q8H PRN #15 tab PRN Reason: Pain - Moderate Penicillin VK 500 MG TAB(NF) [Penicillin VK 500 mg Tab] 500 mg PO TID #21 tab MDD 3 Patient Education Materials: Toothache (ED) Referrals: Chelo Adrian MD [Primary Care Provider] - Additional Instructions: Do not nurse within 4-6 hours after taking the Hydrocodone. Medication is for bedtime nurse only. Discard the milk produced within 4 hours after taking it. - Attestation Statements Document Initiated by Scribe: Yes Documenting Scribe: Akshat Houston Provider For Whom Scribe is Documenting (Include Credential): Nate Kimbrough MD Scribe Attestation: Akshat Newell, scribed for Nate Kimbrough MD on 04/14/19 at 1301. Status of Scribe Document: Ready
== END 2019-04-14 13:07 | disposition home or self-care (01) ==
LOC: ED 12:18
DX: K08.89 Other specified disorders of teeth and supporting structures (principal); Z88.2 Allergy status to sulfonamides; K50.90 Crohn's disease, unspecified, without complications; F41.9 Anxiety disorder, unspecified; F32.9 Major depressive disorder, single episode, unspecified
CPT/HCPCS: 99281

== ENCOUNTER 2019-11-16 10:33 | Emergency (ER) | payer OTHER ==
--- OUTSIDE RECORDS SUMMARY | 2019-11-16 10:42 | XMS REPORT | Continuity of Care Document ---
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 [phone] Medicine Problems Description No Information Available Social History Type Date Description Comments Sex Unknown Tobacco Use Start: Unknown Never Smoked Cigarettes Smoking Status Reviewed: 02/20/19 Never Smoked Cigarettes ETOH Use Denies alcohol use Tobacco Use Start: Unknown End: Unknown Patient is a former smoker Recreational Drug Use Denies Drug Use Seat Belt/Car Seat Always uses seat belt Allergies, Adverse Reactions, Alerts Active Allergies Reaction Severity Comments Date Sulfa 05/01/2012 Medications Active Medications SIG Qnty Indications Ordering Provider Date Multi + Dha Take 1 Capsule 60units Erianna Christy, 06/14/2018 Softgel By Mouth Every CNM Day Zatean-PN Dha take 1 capsule 60caps Romaineianna Christy, 08/16/2017 by mouth every CNM 27-0.6-0.4-300mg day Capsules Medications Administered in Office Medication SIG Qnty Indications Ordering Provider Date PT SCRN Tbco Id as Non User Greg Cabral CNM 02/20/2019 Injection PT SCRN Tbco Id as Non User Greg Cabral CNM 06/12/2018 Injection Immunizations CPT Code Status Date Vaccine Lot # [id number] Given 11/05/2017 Tetnus, Diptheria Toxoids And Acellular Pertussis, [id number] PT > 7Yrs Old [id number] Given 07/18/2017 Influenza Vaccine Quadrivalent Preser/Antibiotic [id number] Free Im Use 12745 Given 10/09/2016 Tetnus, Diptheria Toxoids And Acellular Pertussis, [id number] PT > 7Yrs Old 43989 Given 05/10/2016 Influenza Virus Vaccine Split Virus Use For [id number] Individual 3Yr Older 77947 Given 05/29/2012 Influenza Virus Vaccine 3Years Or Older Vital Signs Date Vital Result Comment 02/20/2019 1:21pm BP Systolic 106 mmHg BP Diastolic 66 mmHg Height 65.5 inches 5'5.50" Weight 145.00 lb BMI (Body Mass Index) 23.8 kg/m2 3 Parity 3 06/12/2018 10:27am BP Systolic 110 mmHg BP Diastolic 66 mmHg Height 65.5 inches 5'5.50" Weight 148.00 lb BMI (Body Mass Index) 24.3 kg/m2 3 Parity 3 Results Test Acquired Date Facility Test Result H/L Range Note Xray 11/07/2019 [facility], <14WKS <pending> Procedures Date Code Description Status 11/07/2019 10500 OB Ultrasound First Trimester Completed Medical Devices Description No Information Available Encounters Description No Information Available Assessments Date Code Description Provider 11/07/2019 O26.91 related conditions, unspecified, Mamta Leslie MD first trimester 11/07/2019 O26.91 related conditions, unspecified, Ultrasounds first trimester Plan of Treatment Future Appointment(s):11/14/2019 10:30 am - Tonya Ibrahim CNM at [facility]02/20/2019 - Greg Cabral CNMZ11.3 Encounter for screening for infections with a predominantlyComments:Viral culture collected to r/o HSV sore (pt with known history)Given that sx improving could be a self limiting infection. Enc sitz baths, keeping area clean and dry. If worsening sx, erythema , heat consider short course of antibiotics.Follow up:1 week to insure sx improving Functional Status Description No Information Available Mental Status Description No Information Available Referrals Description No Information Available
--- OUTSIDE RECORDS SUMMARY | 2019-11-16 10:42 | XMS REPORT | Continuity of Care Document ---
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 [phone] Medicine Problems Description No Information Available Social [...] + Dha Take 1 Capsule 60units Erianna Harrison, 06/14/2018 Softgel By Mouth Every CNM Day Zatean-PN Dha take 1 capsule 60caps Erianna Christy, 08/16/2017 by mouth every CNM 27-0.6-0.4-300mg day Capsules Medications Administered in Office Medication SIG Qnty Indications Ordering Provider Date PT SCRN Tbco Id as Non User Greg Cabral CNM 02/20/2019 Injection PT SCRN Tbco Id as Non User Greg Cabral CNM 06/12/2018 Injection Immunizations CPT Code Status Date Vaccine Lot # [id number] Given 11/05/2017 Tetnus, Diptheria Toxoids And Acellular Pertussis, [id number] PT > 7Yrs Old [id number] Given 07/18/2017 Influenza Vaccine Quadrivalent Preser/Antibiotic [id number] Free Im Use 39535 Given 10/09/2016 Tetnus, Diptheria Toxoids And Acellular Pertussis, [id number] PT > 7Yrs Old [id number] Given 05/10/2016 Influenza Virus Vaccine Split Virus Use For [id number] Individual 3Yr Older 69918 Given 05/29/2012 Influenza Virus Vaccine 3Years Or [...] Index) 24.3 kg/m2 3 Parity 3 Results Description No Information Available Procedures Date Code Description Status 11/07/2019 75520 OB Ultrasound First Trimester Completed Medical Devices Description No Information Available Encounters Description No Information Available Assessments Date Code Description Provider 11/07/2019 O09.71 Supervision of high risk due to Tonya Ibrahim CNM social problems, first trimester 11/07/2019 O26.91 related conditions, unspecified, Mamta Leslie MD first trimester 11/07/2019 O26.91 related conditions, unspecified, Ultrasounds first trimester Plan of Treatment 02/20/2019 - Greg Cabral CNMZ11.3 Encounter for screening for infections with a predominantlyComments:Viral culture collected to r/o HSV sore (pt with known history)Given that sx improving could be a self limiting infection. Enc sitz baths, keeping area clean and dry. If worsening sx, erythema, heat consider short course of antibiotics.Follow up:1 week to insure sx improving Functional Status Description No Information Available Mental Status Description No Information Available Referrals Description No Information Available
--- NOTE | 2019-11-16 10:45 | UC ---
Lower Extremity/Ankle HPI - HPI Summary HPI Summary: CHIEF COMPLAINT: Left ankle pain HPI: This is a 33-year-old female who is 11 weeks who states that she fell last night around midnight injuring her left ankle. She denies any abdominal trauma. The pain is located mostly on the lateral aspect of the left ankle it is moderate and is made worse by weight bearing and walking. Patient' s history is positive for previous left ankle sprains. She denies any previous fracture. VITAL SIGNS REVIEWED. Within normal limits unless noted here. NURSES NOTE REVIEWED. - History of Current Complaint Stated Complaint: LEFT ANKLE INJURY Time Seen by Provider: 11/16/19 10:37 Hx Last Menstrual Period: [id number] - Allergies/Home Medications Allergies/Adverse Reactions: Allergies Allergy/AdvReac Type Severity Reaction Status Date / Time Sulfa (Sulfonamide Allergy See Comment Verified 11/16/19 10:53 Antibiotics) Home Medications: Home Medications Vit W/ Ferrous Fumara [ Plus/Iron] 1 tab PO DAILY 06/09/12 [ History Confirmed 11/06/18] PMH/Surg Hx/FS Hx/Imm Hx - Additional Past Medical History Additional PMH: PAST MEDICAL HISTORY- history of Crohn's; patient is 11 weeks . 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 CHRONIC and RECURRENT HEALTH PROBLEM LIST REVIEWED. VISIT HISTORY REVIEWED. MEDICATIONS & ALLERGIES REVIEWED. HYPERTENSION HISTORY REVIEWED: none. FAMILY HISTORY: Patient denies significant family history except for diabetes in her grandmother. SOCIAL HISTORY: Smoking: none Alcohol: rare Home: Lives with her 3 children; patient is in school. 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 Previously Healthy: Yes - Surgical History Surgical History: None - Family History Known Family History: Positive: Hypertension, Diabetes Family History: crohns disease - Social History Alcohol Use: Rare Substance Use Type: None Smoking Status (MU): Never Smoked Tobacco Have You Smoked in the Last Year: No - Immunization History Most Recent Influenza Vaccination: 05/09/16 Most Recent Tetanus Shot: 2010 Most Recent Pneumonia Vaccination: unsure Review of Systems All Other Systems Reviewed And Are Negative: Yes Constitutional: Positive: Negative Respiratory: Positive: Negative Cardiovascular: Positive: Negative Gastrointestinal: Positive: Negative Musculoskeletal: Positive: Decreased ROM, Edema, Myalgia - left ankle; pain increases with ambulation Is Patient Immunocompromised?: No Physical Exam - Summary Physical Exam Summary: Appearance: The patient is well-appearing, is well-nourished, and is in no pain or distress. Eyes: Conjunctiva are clear. Pupils are equal and reactive to light and accommodation. Extraocular muscle movement is intact. ENT: The hearing is grossly normal, the pharynx is normal, and the TMs are normal. There is no muffled or hoarse voice. No stridor. Neck: The neck is supple and there is no lymphadenopathy. Respiratory: The chest is non-tender to palpation and without crepitus. The lungs are clear, there are normal breath sounds, and there is no respiratory distress. No wheezes, rales or rhonchi. Cardiovascular: Heart sounds reveal a regular rate and rhythm. There are no clicks, rubs or murmurs. There are no carotid bruits. Circulation is grossly intact. Abdomen: The abdomen is soft and nontender. Bowel sounds are present and within normal limits. There is no gross organomegaly. No point tenderness at McBurney s point. No CVA tenderness. Musculoskeletal: Strength is intact. The patient moves all extremities. Left ankle: Swollen lateral; tender to palpation; negative anterior drawer; Achilles tendon no step of or limitation of flexion. Neurological: The patient is alert. Motor and sensory are examination grossly intact. Speech is normal. Psychological: The patient displays age appropriate behavior, and is conversant. GCS=15. Skin: Negative for rashes. x ray: by radiologist: Congruent ankle mortise and normal articular alignment throughout the field of view. #. Negative for fracture or osteochondral lesion. Talocrural joint effusion. Preserved joint spaces without appreciable arthropathic change. Moderate soft tissue swelling over the lateral malleolus. IMPRESSION: Consider potential lateral supporting ligament injury. Triage Information Reviewed: Yes Vital Signs Reviewed: Yes Lower Extremity Course/Dx - Course Course Of Treatment: This is a 33-year-old female who is 11 weeks who states that she fell last night around midnight injuring her left ankle. She denies any abdominal trauma. The pain is located mostly on the lateral aspect of the left ankle it is moderate and is made worse by weight bearing and walking. Patient's history is positive for previous left ankle sprains. She denies any previous fracture. Physical exam shows that the patient can walk with mild discomfort. X-ray is negative for fracture. My diagnosis is left ankle lateral collateral ligament sprain. Patient will restrict activity until pain free, and use cindy, Gel cast, and crutches. - Differential Dx/Diagnosis Differential Diagnosis/HQI/PQRI: Sprain, Strain, Other - Achilles injury Provider Diagnosis: Left ankle sprain Discharge ED - Sign-Out/Discharge Documenting (check all that apply): Patient Departure All imaging exams completed and their final reports reviewed: Yes - Discharge Plan Condition: Stable Disposition: HOME Patient Education Materials: Ankle Sprain (DC) Referrals: Chelo Adrian MD [Primary Care Provider] - Additional Instructions: WE DISCUSSED: You have sprained her left ankle. PLEASE SEEK CARE AT THE EMERGENCY DEPARTMENT IF SYMPTOMS WORSEN OR IF NEW SYMPTOMS DEVELOP. FOLLOW UP WITH YOUR PRIMARY CARE PHYSICIAN IF CONDITION CONTINUES BEYOND 3 DAYS WITHOUT IMPROVEMENT. YOUR DIAGNOSIS IS: Left ankle left ankle sprain YOUR PRESCRIPTION RECOMMENDATION IS: None For pain: acetaminophen (Tylenol and other brand names) 500mg - 1000mg every 8 hours. Maximum is 3 doses a day. If this dosage is required for more than 5 days , you should re-check with your doctor. The combination of these two over-the- counter medications can be more effective than each one taken alone. Please check with the pharmacist if you have questions about your allergies to these medications or if you have any chronic conditions that might be affected by either Tylenol or Ibuprofen. Use gelcast, cindy, crutches. Add weight as you become more comfortable. Warm moist heat in the morning. After standing, elevate, ice, rest. "If it hurts, don't do it." If you have continued pain after 10 days or you haven't improved, you should be rechecked to make sure there is no hidden fracture. - Billing Disposition and Condition Condition: STABLE Disposition: Home
[2019-11-16 10:52] VITALS: BP 121/71
== END 2019-11-16 11:58 | disposition home or self-care (01) ==
LOC: UCEAST 10:33
DX: O26.891 Other specified pregnancy related conditions, first trimester (principal); S93.402A Sprain of unspecified ligament of left ankle, initial encounter; W19.XXXA Unspecified fall, initial encounter; Y92.9 Unspecified place or not applicable; Z3A.11 11 weeks gestation of pregnancy; Z88.2 Allergy status to sulfonamides
CPT/HCPCS: 99214; G0463

== ENCOUNTER 2020-05-30 08:10 | Inpatient (IN) ==
[2020-05-30] MEDS ORDERED: Lactated Ringers 1000 ml BAG 1,000 ML IV ONE (08:51)
[2020-05-30] MEDS ORDERED: Buffered Lidocaine 1% SYRIN 1 ml INTRADERM ONE (08:51)
[2020-05-30] MEDS ORDERED: Oxytocin in LR 20 UNITS/1,000 ML BAG IVPB SCH (09:00)
[2020-05-30] MEDS ORDERED: Lactated Ringers 1000 ml BAG 1,000 ML IV SCH ×2 (09:00→23:45)
[2020-05-30 11:18] LABS: ABS Eosinophils 0.1 10^3/ul (0-0.6); ABS Lymphocytes 1.2 10^3/ul (1.0-4.8); ABS Monocytes 0.4 10^3/ul (0-0.8); ABS Neutrophils 6.3 10^3/ul (1.5-7.7); Eosinophil % 1.3 %; Hematocrit 33 % (35-47); Hemoglobin 10.6 g/dL (12.0-16.0); Mean Corpuscular HGB Conc 32 g/dL (31-36); Mean Corpuscular Hemoglobin 23 pg (27-31); Mean Corpuscular Volume 73 fL (80-97); Mean Platelet Volume 8.5 fL (7.4-10.4); Platelet Count 235 10^3/uL (150-450); Red Blood Count 4.53 10^6 /uL (3.70-4.87); Red Cell Distribution Width 16 % (10-15); White Blood Count 8.1 10^3/uL (3.5-10.8)
[2020-05-30 11:43] LABS: Urine Benzodiazepine Screen None Detected (None Detect); Urine Cannabinoids Screen None Detected (None Detect); Urine Opiates Screen None Detected (None Detect)
[2020-05-30] MEDS ORDERED: Promethazine INJ(RESTRICTED) 25 MG/ML 1 ml VIAL IV PRN (22:23)
[2020-05-30] MEDS ORDERED: OBEPIDURAL 0 ML EPIDURAL ONE (23:27)
[2020-05-30] MEDS ORDERED: Witch Hazel PAD JAR ONE (23:52)
[2020-05-30] MEDS ORDERED: Glycerin ADULT 2.4 gm SUPP PR PRN (23:57)
[2020-05-30] MEDS ORDERED: Witch Hazel PAD JAR TOPICAL PRN (23:57)
[2020-05-30] MEDS ORDERED: Dibucaine 1% OINT 28.35 GM TUBE PR PRN (23:57)
[2020-05-31 08:49] LABS: ABS Eosinophils 0.1 10^3/ul (0-0.6); ABS Lymphocytes 1.1 10^3/ul (1.0-4.8); ABS Monocytes 0.6 10^3/ul (0-0.8); ABS Neutrophils 9.4 10^3/ul (1.5-7.7); Eosinophil % 0.6 %; Hematocrit 28 % (35-47); Hemoglobin 9.1 g/dL (12.0-16.0); Lymphocyte % 9.6 %; Mean Corpuscular HGB Conc 33 g/dL (31-36); Mean Corpuscular Hemoglobin 24 pg (27-31); Mean Corpuscular Volume 73 fL (80-97); Mean Platelet Volume 8.4 fL (7.4-10.4); Platelet Count 206 10^3/uL (150-450); Red Blood Count 3.82 10^6 /uL (3.70-4.87); Red Cell Distribution Width 16 % (10-15); White Blood Count 11.1 10^3/uL (3.5-10.8)
[2020-05-31 14:08] LABS: RPR Reactive (Nonreactive)
[2020-06-01 08:07] VITALS: BP 115/79
== END 2020-06-01 18:43 | disposition home or self-care (01) | DRG 560 ==
LOC: MCHOBOUT 08:10 → MCHOB 08:51
PROVIDERS: ADMIT Obstetrics & Gynecology; ATTEND Obstetrics & Gynecology